=== PATIENT | female | born 1940 | race Caucasian/White ===

== ENCOUNTER 2017-05-19 12:18 | Emergency (ER) | payer MEDICARE, OTHER ==
[2017-05-20] MEDS: SOD CHLORIDE 0.9% 500 ML IV (00:47)
[2017-05-20] MEDS: AMPICILLIN 2 GM/NS (PMX) 100 ML IVPB (00:53)
[2017-05-20 01:26] LABS: ADD MAN DIFF? NO
[2017-05-20 01:32] LABS: BASOPHILS % 0.5 % (0.0-2.0); EOSINOPHILS # 0.2 10^3/ul (0.0-0.5); EOSINOPHILS % 4.1 % (0.0-7.0); HEMATOCRIT 34.4 % (37.0-47.0); LYMPHOCYTES # 1.6 10^3/ul (0.8-2.9); LYMPHOCYTES % 27.9 % (15.0-51.0); MEAN CORPUSCULAR HEMOGLOBIN 25.7 pg (29.0-33.0); MEAN CORPUSCULAR VOLUME 80.4 fl (82.0-101.0); MONOCYTE # 0.6 10^3/ul (0.3-0.9); MONOCYTES % 9.8 % (0.0-11.0); NEUTROPHIL # 3.3 10^3/ul (1.6-7.5); NEUTROPHILS % 57.4 % (39.0-77.0); PLATELET COUNT 394 10^3/UL (140-415); RED BLOOD COUNT 4.28 10^6/ul (4.20-5.40); RED CELL DISTRIBUTION WIDTH 14.6 % (11.5-14.5)
[2017-05-20 01:32] LABS: WHITE BLOOD COUNT 5.8 10^3/ul (4.8-10.8)
[2017-05-20 01:56] LABS: ALANINE AMINOTRANSFERASE 29 IU/L (13-69); ALBUMIN 3.7 g/dl (3.3-4.9); ALBUMIN/GLOBULIN RATIO 0.94; ALKALINE PHOSPHATASE 97 IU/L (42-121); ANION GAP 16 (8-16); ASPARTATE AMINO TRANSFERASE 40 IU/L (15-46); BLOOD UREA NITROGEN 20 mg/dl (7-20); CALCIUM 8.7 mg/dl (8.4-10.2); CARBON DIOXIDE 26 mmol/L (21-31); CHLORIDE 102 mmol/L (97-110); CREATININE 1.26 mg/dl (0.44-1.00); GLUCOSE 150 mg/dl (70-220); POTASSIUM 3.8 mmol/L (3.5-5.1); SODIUM 140 mmol/L (135-144); TOTAL PROTEIN 7.6 g/dl (6.1-8.1)
[2017-05-20 02:07] LABS: TROPONIN-I 0.023 ng/ml (0.00-0.12)
== END 2017-05-20 03:50 | disposition home or self-care (01) ==
LOC: FTE 12:18
DX: T82.49XA Other complication of vascular dialysis catheter, initial encounter (principal); E11.9 Type 2 diabetes mellitus without complications; I70.303 Unspecified atherosclerosis of unspecified type of bypass graft(s) of the extremities, bilateral legs; Y71.2 Prosthetic and other implants, materials and accessory cardiovascular devices associated with adverse incidents; Z87.2 Personal history of diseases of the skin and subcutaneous tissue; Z45.2 Encounter for adjustment and management of vascular access device; Z79.84 Long term (current) use of oral hypoglycemic drugs
CPT/HCPCS: 36415; 71045; 80053; 82962; 84484; 85025; 87040; 93971; 96365; 99285-25

== ENCOUNTER 2017-05-20 10:19 | Emergency (ER) | payer MEDICARE, OTHER ==
[2017-05-20] MEDS: LIDOCAINE 1% (MPF) 5 ML VIAL SC (12:10)
[2017-05-20] MEDS: SOD CHLORIDE 0.9% 100 ML (12:25)
== END 2017-05-20 16:35 | disposition home or self-care (01) ==
LOC: E/R 10:19
DX: Z45.2 Encounter for adjustment and management of vascular access device (principal); E11.9 Type 2 diabetes mellitus without complications; I10 Essential (primary) hypertension; Z79.84 Long term (current) use of oral hypoglycemic drugs
CPT/HCPCS: 36569; 71045; 76937; 99284-25

== ENCOUNTER 2017-05-21 18:14 | Emergency (ER) | payer MEDICARE, OTHER ==
[2017-05-21 21:52] LABS: ADD MAN DIFF? NO
[2017-05-21 21:54] LABS: WHITE BLOOD COUNT 6.9 10^3/ul (4.8-10.8)
[2017-05-21 21:54] LABS: BASOPHILS % 0.1 % (0.0-2.0); EOSINOPHILS # 0.6 10^3/ul (0.0-0.5); EOSINOPHILS % 8.4 % (0.0-7.0); HEMATOCRIT 31.4 % (37.0-47.0); HEMOGLOBIN 10.1 g/dl (12.0-16.0); LYMPHOCYTES # 0.8 10^3/ul (0.8-2.9); MEAN CORPUSCULAR HEMOGLOBIN 26.2 pg (29.0-33.0); MEAN CORPUSCULAR HGB CONC 32.2 g/dl (32.0-37.0); MEAN CORPUSCULAR VOLUME 81.6 fl (82.0-101.0); MEAN PLATELET VOLUME 9.9 fl (7.4-10.4); MONOCYTE # 0.4 10^3/ul (0.3-0.9); MONOCYTES % 5.2 % (0.0-11.0); NEUTROPHIL # 5.1 10^3/ul (1.6-7.5); PLATELET COUNT 325 10^3/UL (140-415); RED BLOOD COUNT 3.85 10^6/ul (4.20-5.40); RED CELL DISTRIBUTION WIDTH 14.5 % (11.5-14.5)
[2017-05-21] MEDS: SODIUM CHLORIDE 0.9% 1L BAG IV* (22:01)
[2017-05-21] MEDS: DIPHENHYDRAMINE 25 MG CAP PO (22:04)
[2017-05-21 22:09] LABS: ALANINE AMINOTRANSFERASE 29 IU/L (13-69); ALBUMIN 3.4 g/dl (3.3-4.9); ALBUMIN/GLOBULIN RATIO 0.91; ALKALINE PHOSPHATASE 102 IU/L (42-121); ANION GAP 13 (8-16); ASPARTATE AMINO TRANSFERASE 33 IU/L (15-46); BILIRUBIN,INDIRECT 0.1 mg/dl (0-1.1); BILIRUBIN,TOTAL 0.1 mg/dl (0.2-1.3); BLOOD UREA NITROGEN 14 mg/dl (7-20); CALCIUM 8.1 mg/dl (8.4-10.2); CARBON DIOXIDE 26 mmol/L (21-31); CHLORIDE 99 mmol/L (97-110); CREATININE 1.32 mg/dl (0.44-1.00); GLUCOSE 140 mg/dl (70-220); INR 1.02; PARTIAL THROMBOPLASTIN TIME 31.2 Sec (25.0-35.0); POTASSIUM 3.8 mmol/L (3.5-5.1); PROTIME 13.5 Sec (11.9-14.9); PT RATIO 1.1; SODIUM 134 mmol/L (135-144); TOTAL PROTEIN 7.1 g/dl (6.1-8.1)
[2017-05-21 22:21] LABS: TROPONIN-I 0.013 ng/ml (0.00-0.12)
== END 2017-05-21 23:49 | disposition home or self-care (01) ==
LOC: E/R 18:14
DX: B34.9 Viral infection, unspecified (principal); B09 Unspecified viral infection characterized by skin and mucous membrane lesions; I10 Essential (primary) hypertension; E11.9 Type 2 diabetes mellitus without complications; R07.9 Chest pain, unspecified; R50.9 Fever, unspecified; Z79.82 Long term (current) use of aspirin; Z79.84 Long term (current) use of oral hypoglycemic drugs; Z79.4 Long term (current) use of insulin
CPT/HCPCS: 36415; 71045; 80053; 83605; 84484; 85025; 85610; 85730; 87040; 93005; 99285-25

== ENCOUNTER 2017-06-13 05:23 | Inpatient (IN) | payer MEDICARE, OTHER ==
[2017-06-13] MEDS: ACETAMINOPHEN 500 MG TAB PO (06:57)
[2017-06-13] MEDS: SODIUM CHLORIDE 0.9% 1L BAG IV* (06:57)
[2017-06-13 07:09] LABS: ABNORMAL IP MESSAGE 1; HEMATOCRIT 35.7 % (37.0-47.0); HEMOGLOBIN 11.5 g/dl (12.0-16.0); MEAN CORPUSCULAR HEMOGLOBIN 26.2 pg (29.0-33.0); MEAN CORPUSCULAR HGB CONC 32.2 g/dl (32.0-37.0); MEAN CORPUSCULAR VOLUME 81.3 fl (82.0-101.0); MEAN PLATELET VOLUME 10.7 fl (7.4-10.4); PLATELET COUNT 248 10^3/UL (140-415); RED BLOOD COUNT 4.39 10^6/ul (4.20-5.40); RED CELL DISTRIBUTION WIDTH 15.7 % (11.5-14.5)
[2017-06-13 07:09] LABS: WHITE BLOOD COUNT 7.9 10^3/ul (4.8-10.8)
[2017-06-13 07:10] LABS: POSITIVE DIFF @See below
[2017-06-13 07:11] LABS: ADD MAN DIFF? YES
[2017-06-13 07:33] LABS: INR 0.98; PROTIME 13.1 Sec (11.9-14.9)
[2017-06-13 07:34] LABS: PARTIAL THROMBOPLASTIN TIME 24.7 Sec (25.0-35.0)
[2017-06-13 07:39] LABS: ALANINE AMINOTRANSFERASE 23 IU/L (13-69); ALBUMIN 3.7 g/dl (3.3-4.9); ALBUMIN/GLOBULIN RATIO 0.94; ALKALINE PHOSPHATASE 90 IU/L (42-121); ANION GAP 15 (8-16); ASPARTATE AMINO TRANSFERASE 28 IU/L (15-46); BILIRUBIN,INDIRECT 0.2 mg/dl (0-1.1); BILIRUBIN,TOTAL 0.2 mg/dl (0.2-1.3); BLOOD UREA NITROGEN 20 mg/dl (7-20); CALCIUM 9.1 mg/dl (8.4-10.2); CARBON DIOXIDE 22 mmol/L (21-31); CHLORIDE 104 mmol/L (97-110); CREATININE 1.31 mg/dl (0.44-1.00); GLUCOSE 198 mg/dl (70-220); POTASSIUM 3.9 mmol/L (3.5-5.1); SODIUM 137 mmol/L (135-144); TOTAL PROTEIN 7.6 g/dl (6.1-8.1)
[2017-06-13 07:55] LABS: TROPONIN-I < 0.012 ng/ml (0.00-0.12)
[2017-06-13] MEDS: CEFEPIME 2GM/50 ML (PMX) 50 ML IVPB (08:05)
[2017-06-13] MEDS: VANCOMYCIN 1 GM (PMX) 250 ML IVPB (08:38)
[2017-06-13 08:53] LABS: ADD UMIC NO; UR ASCORBIC ACID NEGATIVE (NEGATIVE); UR BILIRUBIN (Dip) NEGATIVE (NEGATIVE); UR BLOOD (Dip) NEGATIVE (NEGATIVE); UR CLARITY CLEAR (CLEAR); UR COLOR STRAW (YELLOW); UR GLUCOSE (Dip) 1+ mg/dL (NEGATIVE); UR KETONES (Dip) NEGATIVE (NEGATIVE); UR LEUKOCYTE ESTERASE (Dip) NEGATIVE Leu/ul (NEGATIVE); UR NITRITE (Dip) NEGATIVE (NEGATIVE); UR SPECIFIC GRAVITY (Dip) 1.006 (1.003-1.030); UR TOTAL PROTEIN (Dip) NEGATIVE (NEGATIVE); UR UROBILINOGEN (Dip) NEGATIVE (NEGATIVE)
[2017-06-13] MEDS: SOD CHLORIDE 0.9% 1,000 ML IV (09:00)
[2017-06-13] MEDS ORDERED: VANCOMYCIN IV PER PHARMACY XX (09:00)
[2017-06-13 09:28] LABS: BAND NEUTROPHILS #M 2.7 10^3/ul (0.0-0.6); BAND NEUTROPHILS % (M) 35 % (0-4); EOSINOPHILS % (M) 1 % (0-7); LYMPHOCYTES #M 0.1 10^3/ul (0.8-2.9); LYMPHOCYTES % (M) 2 % (15-51); PLATELET ESTIMATE NORMAL; SEG NEUT #M 5.1 10^3/ul (1.7-7.5); SEGMENTED NEUTROPHILS (M) % 62 % (39-77); SMUDGE%M 24 % (0-0)
[2017-06-13] MEDS: PIPER-TAZO 3.375 GM IV (PMX) 100 ML IVPB ×2 (11:22→18:00)
[2017-06-13] MEDS ORDERED: NACL 0.9% 3 ML SYG IV (11:30)
[2017-06-13] MEDS ORDERED: VANCOMYCIN 1 GM (PMX) 250 ML IVPB (11:30)
[2017-06-13 11:32] LABS: LACTIC ACID 2.2 mmol/L (0.5-2.0)
[2017-06-13] MEDS: CLINDAMYCIN 600 MG/D5W (PMX) 50 ML IVPB ×3 (12:11→18:00)
[2017-06-13] MEDS ORDERED: GLUCAGON 1 MG INJ IM (12:30)
[2017-06-13] MEDS ORDERED: GLUCOSE GEL 15 GRAM TUBE PO ×2 (12:30)
[2017-06-13] MEDS ORDERED: GLUCOSE GEL 15 GRAM TUBE BUCCAL (12:30)
[2017-06-13] MEDS ORDERED: DEXTROSE 50% 50 ML SYRINGE IV ×2 (12:30)
[2017-06-13] MEDS: INSULIN ASPART [NOVOLOG] 3 ML PEN SC ×3 (12:46→21:00)
[2017-06-13] MEDS: INSULIN GLARGINE [LANtus] 3 ML PEN SC (20:00)
[2017-06-13 20:19] LABS: LACTIC ACID 2.2 mmol/L (0.5-2.0)
[2017-06-13] MEDS: SOD CHLORIDE 0.9% 250 ML IV (21:53)
[2017-06-14 01:05] LABS: LACTIC ACID 2.4 mmol/L (0.5-2.0)
[2017-06-14] MEDS: SOD CHLORIDE 0.9% 500 ML IV (01:42)
[2017-06-14] MEDS: ACCU-CHEK XX (01:48)
[2017-06-14 02:28] LABS: LACTIC ACID 2.1 mmol/L (0.5-2.0)
[2017-06-14] MEDS: PIPER-TAZO 3.375 GM IV (PMX) 100 ML IVPB ×2 (02:35→09:29)
[2017-06-14] MEDS: CLINDAMYCIN 600 MG/D5W (PMX) 50 ML IVPB ×3 (06:13→14:19)
[2017-06-14 06:29] LABS: WHITE BLOOD COUNT 12.2 10^3/ul (4.8-10.8)
[2017-06-14 06:29] LABS: ABNORMAL IP MESSAGE 1; HEMATOCRIT 29.4 % (37.0-47.0); HEMOGLOBIN 9.4 g/dl (12.0-16.0); MEAN CORPUSCULAR HEMOGLOBIN 26.2 pg (29.0-33.0); MEAN CORPUSCULAR VOLUME 81.9 fl (82.0-101.0); PLATELET COUNT 176 10^3/UL (140-415); RED BLOOD COUNT 3.59 10^6/ul (4.20-5.40)
[2017-06-14 06:32] LABS: ADD MAN DIFF? YES; POSITIVE DIFF @See below
[2017-06-14 06:57] LABS: LACTIC ACID 1.6 mmol/L (0.5-2.0)
[2017-06-14 07:16] LABS: ALBUMIN/GLOBULIN RATIO 0.78; ANION GAP 13 (8-16)
[2017-06-14 07:46] LABS: ALANINE AMINOTRANSFERASE 25 IU/L (13-69); ALBUMIN 2.5 g/dl (3.3-4.9); ALKALINE PHOSPHATASE 45 IU/L (42-121); ASPARTATE AMINO TRANSFERASE 25 IU/L (15-46); BILIRUBIN,INDIRECT 0.2 mg/dl (0-1.1); BILIRUBIN,TOTAL 0.2 mg/dl (0.2-1.3); BLOOD UREA NITROGEN 24 mg/dl (7-20); CALCIUM 7.8 mg/dl (8.4-10.2); CARBON DIOXIDE 23 mmol/L (21-31); CHLORIDE 106 mmol/L (97-110); CREATININE 1.54 mg/dl (0.44-1.00); GLUCOSE 82 mg/dl (70-220); POTASSIUM 3.6 mmol/L (3.5-5.1); SODIUM 138 mmol/L (135-144); TOTAL PROTEIN 5.7 g/dl (6.1-8.1)
[2017-06-14] MEDS: INSULIN ASPART [NOVOLOG] 3 ML PEN SC ×4 (08:00→21:00)
[2017-06-14] MEDS: ENOXAPARIN 30 MG/0.3 ML SYG SC (08:12)
[2017-06-14 08:19] LABS: ANISOCYTOSIS 1+ (0-0); BAND NEUTROPHILS #M 4.5 10^3/ul (0.0-0.6); BAND NEUTROPHILS % (M) 37 % (0-4); HYPOCHROMASIA 1+ (0-0); LYMPHOCYTES #M 0.9 10^3/ul (0.8-2.9); LYMPHOCYTES % (M) 8 % (15-51); METAMYELOCYTES #M 0.2 10^3/ul (0.0-0.0); METAMYELOCYTES %M 2 % (0-0); MONOCYTE #M 0.3 10^3/ul (0.3-0.9); MONOCYTES % (M) 3 % (0-11); PLATELET ESTIMATE NORMAL; PLATELET MORPHOLOGY COMMENT @See below; POLYCHROMASIA 1+ (0-0); REACTIVE LYMPHOCYTES #M 0.1 10^3/ul (0.0-0.0); REACTIVE LYMPHOCYTES% (M) 1 % (0-0); SEG NEUT #M 6.5 10^3/ul (1.7-7.5); SEGMENTED NEUTROPHILS (M) % 49 % (39-77); SMUDGE%M 5 % (0-0)
[2017-06-14] MEDS: CEFTRIAXONE 2 GM/50 ML (PMX) 50 ML IVPB (17:03)
[2017-06-14] MEDS: metroNIDAZOLE 250 MG TAB PO ×2 (17:03→21:00)
[2017-06-14] MEDS ORDERED: PIPER-TAZO 3.375 GM IV (PMX) 100 ML IVPB (18:00)
[2017-06-14] MEDS: AMPICILLIN/SULB 3 GM/NS (PMX) 100 ML IVPB (18:27)
[2017-06-14] MEDS ORDERED: VANCOMYCIN 1 GM (PMX) 250 ML IVPB ×2 (20:00)
[2017-06-14] MEDS: INSULIN GLARGINE [LANtus] 3 ML PEN SC (20:59)
[2017-06-15] MEDS: ACCU-CHEK XX (02:11)
[2017-06-15] MEDS: metroNIDAZOLE 250 MG TAB PO ×3 (06:28→22:04)
[2017-06-15 07:50] LABS: HEMATOCRIT 28.4 % (37.0-47.0); HEMOGLOBIN 9.1 g/dl (12.0-16.0); MEAN CORPUSCULAR HEMOGLOBIN 26.1 pg (29.0-33.0); MEAN CORPUSCULAR VOLUME 81.4 fl (82.0-101.0); MEAN PLATELET VOLUME 10.6 fl (7.4-10.4); PLATELET COUNT 177 10^3/UL (140-415); RED BLOOD COUNT 3.49 10^6/ul (4.20-5.40); RED CELL DISTRIBUTION WIDTH 16.3 % (11.5-14.5)
[2017-06-15 07:50] LABS: WHITE BLOOD COUNT 14.3 10^3/ul (4.8-10.8)
[2017-06-15 07:52] LABS: ADD MAN DIFF? YES; POSITIVE DIFF @See below
[2017-06-15] MEDS: INSULIN ASPART [NOVOLOG] 3 ML PEN SC ×4 (08:00→20:57)
[2017-06-15 08:11] LABS: BLOOD UREA NITROGEN 21 mg/dl (7-20); CALCIUM 8.1 mg/dl (8.4-10.2); CARBON DIOXIDE 22 mmol/L (21-31); CHLORIDE 103 mmol/L (97-110); CREATININE 1.41 mg/dl (0.44-1.00); GLUCOSE 61 mg/dl (70-220); SODIUM 136 mmol/L (135-144)
[2017-06-15 08:21] LABS: ANION GAP 14 (8-16)
[2017-06-15] MEDS: ENOXAPARIN 30 MG/0.3 ML SYG SC (08:40)
[2017-06-15] MEDS: AMPICILLIN/SULB 3 GM/NS (PMX) 100 ML IVPB ×2 (09:34→20:59)
[2017-06-15 09:37] LABS: BAND NEUTROPHILS % (M) 35 % (0-4); EOSINOPHILS % (M) 3 % (0-7); ERYTHROBLAST% (NRBC) (M) 1 % (0-0); GIANT THROMBO% (M) 1 % (0-0); LYMPHOCYTES #M 1.7 10^3/ul (0.8-2.9); LYMPHOCYTES % (M) 12 % (15-51); MONOCYTE #M 0.2 10^3/ul (0.3-0.9); MONOCYTES % (M) 2 % (0-11); PLATELET ESTIMATE NORMAL; POLYCHROMASIA 1+ (0-0); SEG NEUT #M 7.6 10^3/ul (1.7-7.5); SEGMENTED NEUTROPHILS (M) % 48 % (39-77); SMUDGE%M 4 % (0-0)
[2017-06-15] MEDS: POTASSIUM CHLORIDE (SR) 20 MEQ TAB PO ×2 (12:27→15:22)
[2017-06-15] MEDS: CEFTRIAXONE 2 GM/50 ML (PMX) 50 ML IVPB (15:25)
[2017-06-15] MEDS: INSULIN GLARGINE [LANtus] 3 ML PEN SC (20:59)
[2017-06-16] MEDS: ACCU-CHEK XX (02:52)
[2017-06-16] MEDS: INSULIN ASPART [NOVOLOG] 3 ML PEN SC ×4 (08:00→20:23)
[2017-06-16] MEDS: ENOXAPARIN 30 MG/0.3 ML SYG SC (08:13)
[2017-06-16 08:38] LABS: HEMATOCRIT 29.8 % (37.0-47.0); HEMOGLOBIN 9.7 g/dl (12.0-16.0); MEAN CORPUSCULAR HEMOGLOBIN 26.2 pg (29.0-33.0); MEAN CORPUSCULAR HGB CONC 32.6 g/dl (32.0-37.0); MEAN CORPUSCULAR VOLUME 80.5 fl (82.0-101.0); MEAN PLATELET VOLUME 11.4 fl (7.4-10.4); PLATELET COUNT 211 10^3/UL (140-415); RED CELL DISTRIBUTION WIDTH 16.1 % (11.5-14.5)
[2017-06-16 08:38] LABS: WHITE BLOOD COUNT 11.9 10^3/ul (4.8-10.8)
[2017-06-16 08:49] LABS: ADD MAN DIFF? YES; POSITIVE DIFF @See below
[2017-06-16 08:56] LABS: ANION GAP 11 (8-16); BLOOD UREA NITROGEN 17 mg/dl (7-20); CALCIUM 8.8 mg/dl (8.4-10.2); CARBON DIOXIDE 25 mmol/L (21-31); CHLORIDE 105 mmol/L (97-110); CREATININE 1.11 mg/dl (0.44-1.00); GLUCOSE 103 mg/dl (70-220); MAGNESIUM 1.6 mg/dl (1.7-2.5); PHOSPHORUS 2.3 mg/dl (2.5-4.9); POTASSIUM 3.8 mmol/L (3.5-5.1); SODIUM 137 mmol/L (135-144)
[2017-06-16 11:46] LABS: BAND NEUTROPHILS #M 2.2 10^3/ul (0.0-0.6); BAND NEUTROPHILS % (M) 19 % (0-4); EOSINOPHILS % (M) 3 % (0-7); GIANT THROMBO% (M) 1 % (0-0); LYMPHOCYTES #M 1.3 10^3/ul (0.8-2.9); LYMPHOCYTES % (M) 11 % (15-51); METAMYELOCYTES #M 0.1 10^3/ul (0.0-0.0); METAMYELOCYTES %M 1 % (0-0); MONOCYTE #M 0.5 10^3/ul (0.3-0.9); MONOCYTES % (M) 5 % (0-11); PLATELET ESTIMATE NORMAL; POIKILOCYTOSIS 1+ (0-0); POLYCHROMASIA 1+ (0-0); REACTIVE LYMPHOCYTES #M 0.7 10^3/ul (0.0-0.0); REACTIVE LYMPHOCYTES% (M) 6 % (0-0); SEG NEUT #M 6.8 10^3/ul (1.7-7.5); SEGMENTED NEUTROPHILS (M) % 55 % (39-77); SMUDGE%M 1 % (0-0)
[2017-06-16] MEDS: MAGNESIUM OXIDE 400 MG TAB PO ×2 (14:21→20:23)
[2017-06-16] MEDS: MAGNESIUM SULFATE 2 GM/50 ML 50 ML IVPB (14:22)
[2017-06-16] MEDS: CEFTRIAXONE 2 GM/50 ML (PMX) 50 ML IVPB (16:39)
[2017-06-16] MEDS: INSULIN GLARGINE [LANtus] 3 ML PEN SC (20:26)
[2017-06-17] MEDS: ACCU-CHEK XX (03:00)
[2017-06-17] MEDS: INSULIN ASPART [NOVOLOG] 3 ML PEN SC ×2 (08:00→12:37)
[2017-06-17] MEDS: ASPIRIN (EC) 81 MG TAB PO (09:00)
[2017-06-17] MEDS: ENOXAPARIN 30 MG/0.3 ML SYG SC (09:00)
[2017-06-17] MEDS: MAGNESIUM OXIDE 400 MG TAB PO (09:00)
[2017-06-17 09:11] LABS: ADD MAN DIFF? NO
[2017-06-17 09:43] LABS: BASOPHILS % 0.4 % (0.0-2.0); EOSINOPHILS # 0.5 10^3/ul (0.0-0.5); EOSINOPHILS % 7.5 % (0.0-7.0); HEMATOCRIT 30.8 % (37.0-47.0); HEMOGLOBIN 10.1 g/dl (12.0-16.0); LYMPHOCYTES # 1.6 10^3/ul (0.8-2.9); LYMPHOCYTES % 23.4 % (15.0-51.0); MEAN CORPUSCULAR HEMOGLOBIN 26.4 pg (29.0-33.0); MEAN CORPUSCULAR HGB CONC 32.8 g/dl (32.0-37.0); MEAN CORPUSCULAR VOLUME 80.4 fl (82.0-101.0); MEAN PLATELET VOLUME 10.5 fl (7.4-10.4); MONOCYTE # 0.8 10^3/ul (0.3-0.9); MONOCYTES % 11.1 % (0.0-11.0); NEUTROPHILS % 56.3 % (39.0-77.0); PLATELET COUNT 260 10^3/UL (140-415); RED BLOOD COUNT 3.83 10^6/ul (4.20-5.40); RED CELL DISTRIBUTION WIDTH 15.9 % (11.5-14.5)
[2017-06-17 09:48] LABS: ANION GAP 10 (8-16); BLOOD UREA NITROGEN 14 mg/dl (7-20); CALCIUM 8.9 mg/dl (8.4-10.2); CARBON DIOXIDE 29 mmol/L (21-31); CHLORIDE 101 mmol/L (97-110); CREATININE 1.02 mg/dl (0.44-1.00); GLUCOSE 91 mg/dl (70-220); POTASSIUM 3.9 mmol/L (3.5-5.1); SODIUM 136 mmol/L (135-144)
[2017-06-17] MEDS: CEFTRIAXONE 2 GM/50 ML (PMX) 50 ML IVPB (16:52)
== END 2017-06-17 19:19 | disposition home or self-care (01) | DRG 872 ==
LOC: E/R 05:23 → MS4 08:54
DX: A41.9 Sepsis, unspecified organism (principal); E11.21 Type 2 diabetes mellitus with diabetic nephropathy; N18.3 Chronic kidney disease, stage 3 (moderate); L03.311 Cellulitis of abdominal wall; E11.22 Type 2 diabetes mellitus with diabetic chronic kidney disease; I70.1 Atherosclerosis of renal artery; I12.9 Hypertensive chronic kidney disease with stage 1 through stage 4 chronic kidney disease, or unspecified chronic kidney disease; I89.0 Lymphedema, not elsewhere classified; E78.5 Hyperlipidemia, unspecified; Z79.4 Long term (current) use of insulin; Z85.41 Personal history of malignant neoplasm of cervix uteri; R65.20 Severe sepsis without septic shock; B95.1 Streptococcus, group B, as the cause of diseases classified elsewhere
CPT/HCPCS: 36415; 71045; 73700; 74176; 78806; 80048; 80053; 81003; 82962; 83605; 83735; 84100; 84484; 85025; 85610; 85730; 87040; 87045; 87075; 87081; 87086; 87400; 93005; 93306; 93970; 96365; 96366; 96367; 96372; 97110; 97163; 97530; 99291-25

== ENCOUNTER 2018-03-31 15:47 | Inpatient (IN) | payer MEDICARE, OTHER ==
[2018-03-31 18:15] LABS: ADD MAN DIFF? NO
[2018-03-31 18:19] LABS: WHITE BLOOD COUNT 9.7 10^3/ul (4.8-10.8)
[2018-03-31 18:19] LABS: BASOPHILS % 0.1 % (0.0-2.0); EOSINOPHILS % 0.1 % (0.0-7.0); HEMATOCRIT 39.7 % (37.0-47.0); HEMOGLOBIN 12.7 g/dl (12.0-16.0); LYMPHOCYTES # 1.1 10^3/ul (0.8-2.9); LYMPHOCYTES % 10.9 % (15.0-51.0); MEAN CORPUSCULAR HEMOGLOBIN 26.4 pg (29.0-33.0); MEAN CORPUSCULAR VOLUME 82.5 fl (82.0-101.0); MEAN PLATELET VOLUME 10.5 fl (7.4-10.4); MONOCYTE # 0.7 10^3/ul (0.3-0.9); MONOCYTES % 7.1 % (0.0-11.0); NEUTROPHIL # 7.9 10^3/ul (1.6-7.5); NEUTROPHILS % 81.5 % (39.0-77.0); PLATELET COUNT 229 10^3/UL (140-415); RED BLOOD COUNT 4.81 10^6/ul (4.20-5.40); RED CELL DISTRIBUTION WIDTH 13.9 % (11.5-14.5)
[2018-03-31] MEDS: IBUPROFEN 600 MG TAB PO (18:21)
[2018-03-31] MEDS: ACETAMINOPHEN 325 MG TAB PO (18:21)
[2018-03-31] MEDS: CEFEPIME 2GM/50 ML (PMX) 50 ML IVPB (18:35)
[2018-03-31] MEDS: SODIUM CHLORIDE 0.9% 1L BAG IV* (18:37)
[2018-03-31 18:39] LABS: INR 0.94; PROTIME 12.7 Sec (11.9-14.9)
[2018-03-31 18:43] LABS: ALANINE AMINOTRANSFERASE 21 IU/L (13-69); ALBUMIN 4.3 g/dl (3.3-4.9); ALBUMIN/GLOBULIN RATIO 1.16; ALKALINE PHOSPHATASE 111 IU/L (42-121); AMYLASE 75 U/L (11-123); ANION GAP 10 (5-13); ASPARTATE AMINO TRANSFERASE 42 IU/L (15-46); BILIRUBIN,INDIRECT 0.7 mg/dl (0-1.1); BILIRUBIN,TOTAL 0.7 mg/dl (0.2-1.3); BLOOD UREA NITROGEN 19 mg/dl (7-20); CALCIUM 9.2 mg/dl (8.4-10.2); CARBON DIOXIDE 26 mmol/L (21-31); CHLORIDE 101 mmol/L (97-110); CREATININE 1.29 mg/dl (0.44-1.00); GLUCOSE 195 mg/dl (70-220); LIPASE 79 U/L (23-300); SODIUM 137 mmol/L (135-144)
[2018-03-31] MEDS: morphine 2 MG INJ IV (18:54)
[2018-03-31] MEDS: ONDANSETRON 4 MG INJ IV (18:54)
[2018-03-31 18:55] LABS: TROPONIN-I 0.023 ng/ml (0.000-0.120)
[2018-03-31 19:01] LABS: ADD UMIC YES; UR ASCORBIC ACID NEGATIVE (NEGATIVE); UR BACTERIA FEW /HPF (NONE SEEN); UR BILIRUBIN (Dip) NEGATIVE (NEGATIVE); UR BLOOD (Dip) 1+ mg/dL (NEGATIVE); UR CLARITY SLIGHTLY CLOUDY (CLEAR); UR COLOR YELLOW (YELLOW); UR GLUCOSE (Dip) 3+ mg/dL (NEGATIVE); UR KETONES (Dip) NEGATIVE (NEGATIVE); UR LEUKOCYTE ESTERASE (Dip) NEGATIVE Leu/ul (NEGATIVE); UR MUCUS FEW /HPF (NONE SEEN); UR NITRITE (Dip) POSITIVE (NEGATIVE); UR RBC 4 /HPF (0-5); UR SPECIFIC GRAVITY (Dip) 1.013 (1.003-1.030); UR TOTAL PROTEIN (Dip) 2+ mg/dl (NEGATIVE); UR UROBILINOGEN (Dip) NEGATIVE (NEGATIVE); UR WBC 32 /HPF (0-5)
[2018-03-31 19:39] LABS: B-TYPE NATRIURETIC PEPTIDE 1490 PG/ML (0-450)
[2018-03-31] MEDS: VANCOMYCIN 1 GM (PMX) 250 ML IVPB (19:44)
[2018-03-31] MEDS ORDERED: NACL 0.9% 3 ML SYG IV (20:30)
[2018-03-31] MEDS ORDERED: BISACODYL (EC) 5 MG TAB PO (20:30)
[2018-03-31] MEDS ORDERED: ACETAMINOPHEN 325 MG TAB PO (20:30)
[2018-03-31] MEDS ORDERED: ONDANSETRON 4 MG INJ IV (20:30)
[2018-03-31] MEDS ORDERED: DOCUSATE SODIUM 100 MG CAP PO (20:30)
[2018-03-31] MEDS: INSULIN ASPART [NOVOLOG] 3 ML PEN SC (23:37)
[2018-03-31] MEDS: HEPARIN 5,000 UNIT/1 ML VIAL SC (23:37)
[2018-03-31] MEDS: ACCU-CHEK XX (23:37)
[2018-03-31 23:42] LABS: LACTIC ACID 1.2 mmol/L (0.5-2.0)
[2018-03-31] MEDS ORDERED: DEXTROSE 50% 50 ML SYRINGE IV ×2 (23:45)
[2018-03-31] MEDS ORDERED: GLUCOSE GEL 15 GRAM TUBE BUCCAL (23:45)
[2018-03-31] MEDS ORDERED: GLUCAGON 1 MG INJ IM (23:45)
[2018-03-31] MEDS ORDERED: GLUCOSE GEL 15 GRAM TUBE PO ×2 (23:45)
[2018-04-01] MEDS ORDERED: HEPARIN 5,000 UNIT/0.5 ML VIAL ×3 (05:15→20:13)
[2018-04-01] MEDS: HEPARIN 5,000 UNIT/1 ML VIAL SC ×3 (05:35→20:17)
[2018-04-01 06:12] LABS: ADD MAN DIFF? NO
[2018-04-01 06:19] LABS: BASOPHILS % 0.3 % (0.0-2.0); EOSINOPHILS # 0.2 10^3/ul (0.0-0.5); HEMATOCRIT 33.4 % (37.0-47.0); HEMOGLOBIN 10.7 g/dl (12.0-16.0); LYMPHOCYTES # 0.9 10^3/ul (0.8-2.9); LYMPHOCYTES % 12.6 % (15.0-51.0); MEAN CORPUSCULAR HEMOGLOBIN 26.4 pg (29.0-33.0); MEAN CORPUSCULAR VOLUME 82.5 fl (82.0-101.0); MEAN PLATELET VOLUME 10.5 fl (7.4-10.4); MONOCYTE # 0.7 10^3/ul (0.3-0.9); MONOCYTES % 9.6 % (0.0-11.0); NEUTROPHIL # 5.2 10^3/ul (1.6-7.5); NEUTROPHILS % 74.2 % (39.0-77.0); PLATELET COUNT 172 10^3/UL (140-415); RED BLOOD COUNT 4.05 10^6/ul (4.20-5.40); RED CELL DISTRIBUTION WIDTH 14.3 % (11.5-14.5)
[2018-04-01 06:46] LABS: ALANINE AMINOTRANSFERASE 25 IU/L (13-69); ALBUMIN 2.8 g/dl (3.3-4.9); ALBUMIN/GLOBULIN RATIO 0.93; ALKALINE PHOSPHATASE 79 IU/L (42-121); ANION GAP 5 (5-13); ASPARTATE AMINO TRANSFERASE 35 IU/L (15-46); BILIRUBIN,INDIRECT 0.7 mg/dl (0-1.1); BILIRUBIN,TOTAL 0.7 mg/dl (0.2-1.3); BLOOD UREA NITROGEN 22 mg/dl (7-20); CALCIUM 8.1 mg/dl (8.4-10.2); CARBON DIOXIDE 24 mmol/L (21-31); CHLORIDE 110 mmol/L (97-110); CHOL/HDL RATIO 3.1 RATIO; CHOLESTEROL 148 mg/dl (100-200); CREATININE 1.14 mg/dl (0.44-1.00); GLUCOSE 144 mg/dl (70-220); HDL CHOLESTEROL 47 mg/dl (33-92); LDL CHOLESTEROL,CALCULATED 89 mg/dl; MAGNESIUM 1.8 mg/dl (1.7-2.5); POTASSIUM 3.9 mmol/L (3.5-5.1); SODIUM 139 mmol/L (135-144); TOTAL PROTEIN 5.8 g/dl (6.1-8.1); TRIGLYCERIDES 60 mg/dl (0-149)
[2018-04-01] MEDS: INSULIN ASPART [NOVOLOG] 3 ML PEN SC ×4 (07:55→20:09)
[2018-04-01 08:59] LABS: HEMOGLOBIN A1C 8.2 % (0-5.9)
[2018-04-01] MEDS ORDERED: INSULIN DEGLUDEC 10 UNIT SQ (09:00)
[2018-04-01] MEDS: FUROSEMIDE 40 MG INJ IV (10:47)
[2018-04-01] MEDS: CEFTRIAXONE 1 GM/50 ML (PMX) 50 ML IVPB (12:08)
[2018-04-01] MEDS: ACETAMINOPHEN 325 MG TAB PO (15:27)
[2018-04-01] MEDS ORDERED: VANCOMYCIN IV PER PHARMACY XX (15:30)
[2018-04-01] MEDS: [UNRECOGNIZED DRUG - OTHER] XX ×2 (16:30→21:36)
[2018-04-01] MEDS: CIPROFLOXACIN 500 MG TAB PO (17:25)
[2018-04-01] MEDS: BALSAM PERU/CASTOR OIL 60 GM TUBE TOP (20:16)
[2018-04-01] MEDS: VANCOMYCIN 750 MG in SOD CHLORIDE 0.9% 150 ML IVPB (20:16)
[2018-04-02] MEDS: ACCU-CHEK XX (02:00)
[2018-04-02] MEDS ORDERED: HEPARIN 5,000 UNIT/0.5 ML VIAL ×3 (05:00→20:33)
[2018-04-02] MEDS: CIPROFLOXACIN 500 MG TAB PO ×2 (05:08→17:20)
[2018-04-02] MEDS: HEPARIN 5,000 UNIT/1 ML VIAL SC ×3 (05:12→21:48)
[2018-04-02 06:12] LABS: ADD MAN DIFF? NO
[2018-04-02 06:25] LABS: WHITE BLOOD COUNT 6.7 10^3/ul (4.8-10.8)
[2018-04-02 06:25] LABS: BASOPHILS % 0.3 % (0.0-2.0); EOSINOPHILS % 0.4 % (0.0-7.0); HEMATOCRIT 34.8 % (37.0-47.0); HEMOGLOBIN 11.2 g/dl (12.0-16.0); LYMPHOCYTES # 1.2 10^3/ul (0.8-2.9); LYMPHOCYTES % 17.1 % (15.0-51.0); MEAN CORPUSCULAR HEMOGLOBIN 26.4 pg (29.0-33.0); MEAN CORPUSCULAR HGB CONC 32.2 g/dl (32.0-37.0); MEAN CORPUSCULAR VOLUME 81.9 fl (82.0-101.0); MEAN PLATELET VOLUME 10.9 fl (7.4-10.4); MONOCYTE # 0.8 10^3/ul (0.3-0.9); MONOCYTES % 11.6 % (0.0-11.0); NEUTROPHIL # 4.7 10^3/ul (1.6-7.5); NEUTROPHILS % 70.3 % (39.0-77.0); PLATELET COUNT 196 10^3/UL (140-415); RED BLOOD COUNT 4.25 10^6/ul (4.20-5.40); RED CELL DISTRIBUTION WIDTH 13.8 % (11.5-14.5)
[2018-04-02 06:53] LABS: ANION GAP 10 (5-13); BLOOD UREA NITROGEN 17 mg/dl (7-20); CALCIUM 8.4 mg/dl (8.4-10.2); CARBON DIOXIDE 28 mmol/L (21-31); CHLORIDE 98 mmol/L (97-110); CREATININE 1.23 mg/dl (0.44-1.00); GLUCOSE 136 mg/dl (70-220); POTASSIUM 3.7 mmol/L (3.5-5.1); SODIUM 136 mmol/L (135-144)
[2018-04-02] MEDS: INSULIN ASPART [NOVOLOG] 3 ML PEN SC ×5 (07:55→21:49)
[2018-04-02] MEDS: ACETAMINOPHEN 325 MG TAB PO ×2 (08:09→18:16)
[2018-04-02] MEDS: BALSAM PERU/CASTOR OIL 60 GM TUBE TOP ×2 (08:09→20:29)
[2018-04-02] MEDS: INSULIN GLARGINE [LANTus] (100 UNITS/ML) SYG SC (11:52)
[2018-04-02] MEDS: hydrALAzine 20 MG INJ IV (16:07)
[2018-04-02] MEDS: VANCOMYCIN 750 MG in SOD CHLORIDE 0.9% 150 ML IVPB (20:28)
[2018-04-02] MEDS: ONDANSETRON 4 MG TAB PO (20:36)
[2018-04-03] MEDS ORDERED: HEPARIN 5,000 UNIT/0.5 ML VIAL ×3 (05:26→20:46)
[2018-04-03] MEDS: CIPROFLOXACIN 500 MG TAB PO ×2 (05:28→17:07)
[2018-04-03 06:10] LABS: ADD MAN DIFF? NO
[2018-04-03 06:20] LABS: WHITE BLOOD COUNT 5.8 10^3/ul (4.8-10.8)
[2018-04-03 06:20] LABS: BASOPHILS % 0.3 % (0.0-2.0); EOSINOPHILS # 0.1 10^3/ul (0.0-0.5); EOSINOPHILS % 1.6 % (0.0-7.0); HEMATOCRIT 33.7 % (37.0-47.0); LYMPHOCYTES # 1.1 10^3/ul (0.8-2.9); LYMPHOCYTES % 18.3 % (15.0-51.0); MEAN CORPUSCULAR HEMOGLOBIN 26.7 pg (29.0-33.0); MEAN CORPUSCULAR HGB CONC 32.6 g/dl (32.0-37.0); MEAN CORPUSCULAR VOLUME 81.8 fl (82.0-101.0); MEAN PLATELET VOLUME 10.8 fl (7.4-10.4); MONOCYTE # 0.7 10^3/ul (0.3-0.9); MONOCYTES % 11.5 % (0.0-11.0); NEUTROPHIL # 3.9 10^3/ul (1.6-7.5); PLATELET COUNT 220 10^3/UL (140-415); RED BLOOD COUNT 4.12 10^6/ul (4.20-5.40); RED CELL DISTRIBUTION WIDTH 13.7 % (11.5-14.5)
[2018-04-03 06:26] LABS: ALBUMIN 3.3 g/dl (3.3-4.9); ANION GAP 9 (5-13); BLOOD UREA NITROGEN 17 mg/dl (7-20); CALCIUM 8.5 mg/dl (8.4-10.2); CARBON DIOXIDE 25 mmol/L (21-31); CHLORIDE 102 mmol/L (97-110); CREATININE 1.18 mg/dl (0.44-1.00); GLUCOSE 104 mg/dl (70-220); PHOSPHORUS 3.7 mg/dl (2.5-4.9); POTASSIUM 3.5 mmol/L (3.5-5.1); SODIUM 136 mmol/L (135-144)
[2018-04-03] MEDS: HEPARIN 5,000 UNIT/1 ML VIAL SC ×3 (06:31→21:58)
[2018-04-03 06:40] LABS: MAGNESIUM 1.7 mg/dl (1.7-2.5)
[2018-04-03] MEDS: INSULIN ASPART [NOVOLOG] 3 ML PEN SC ×4 (07:55→21:58)
[2018-04-03] MEDS: BALSAM PERU/CASTOR OIL 60 GM TUBE TOP ×2 (08:35→21:02)
[2018-04-03] MEDS: INSULIN GLARGINE [LANTus] (100 UNITS/ML) SYG SC (09:11)
[2018-04-03] MEDS: AMLODIPINE 5 MG TAB PO (10:07)
[2018-04-03 19:52] LABS: VANCOMYCIN,TROUGH 9.7 ug/ml (10.0-20.0)
[2018-04-03] MEDS: VANCOMYCIN 1 GM 250 ML IVPB (22:36)
[2018-04-04 06:00] LABS: ADD MAN DIFF? NO; BASOPHILS % 0.4 % (0.0-2.0); EOSINOPHILS # 0.1 10^3/ul (0.0-0.5); EOSINOPHILS % 1.5 % (0.0-7.0); HEMATOCRIT 33.6 % (37.0-47.0); HEMOGLOBIN 10.7 g/dl (12.0-16.0); LYMPHOCYTES # 1.1 10^3/ul (0.8-2.9); LYMPHOCYTES % 20.5 % (15.0-51.0); MEAN CORPUSCULAR HEMOGLOBIN 26.2 pg (29.0-33.0); MEAN CORPUSCULAR HGB CONC 31.8 g/dl (32.0-37.0); MEAN CORPUSCULAR VOLUME 82.2 fl (82.0-101.0); MEAN PLATELET VOLUME 10.2 fl (7.4-10.4); MONOCYTE # 0.6 10^3/ul (0.3-0.9); NEUTROPHIL # 3.5 10^3/ul (1.6-7.5); NEUTROPHILS % 65.2 % (39.0-77.0); PLATELET COUNT 239 10^3/UL (140-415); RED BLOOD COUNT 4.09 10^6/ul (4.20-5.40); RED CELL DISTRIBUTION WIDTH 13.8 % (11.5-14.5)
[2018-04-04 06:00] LABS: WHITE BLOOD COUNT 5.3 10^3/ul (4.8-10.8)
[2018-04-04] MEDS ORDERED: HEPARIN 5,000 UNIT/0.5 ML VIAL ×3 (06:46→20:01)
[2018-04-04 06:56] LABS: ALBUMIN 3.3 g/dl (3.3-4.9); ANION GAP 9 (5-13); BLOOD UREA NITROGEN 17 mg/dl (7-20); CALCIUM 8.7 mg/dl (8.4-10.2); CARBON DIOXIDE 27 mmol/L (21-31); CHLORIDE 101 mmol/L (97-110); CREATININE 1.13 mg/dl (0.44-1.00); GLUCOSE 126 mg/dl (70-220); MAGNESIUM 1.9 mg/dl (1.7-2.5); PHOSPHORUS 3.5 mg/dl (2.5-4.9); SODIUM 137 mmol/L (135-144)
[2018-04-04] MEDS: CIPROFLOXACIN 500 MG TAB PO ×2 (06:56→17:03)
[2018-04-04] MEDS: HEPARIN 5,000 UNIT/1 ML VIAL SC ×3 (07:01→21:15)
[2018-04-04] MEDS: AMLODIPINE 5 MG TAB PO (08:16)
[2018-04-04] MEDS: INSULIN ASPART [NOVOLOG] 3 ML PEN SC ×4 (08:22→20:53)
[2018-04-04] MEDS: INSULIN GLARGINE [LANTus] (100 UNITS/ML) SYG SC (08:23)
[2018-04-04] MEDS: BALSAM PERU/CASTOR OIL 60 GM TUBE TOP ×2 (08:23→20:43)
[2018-04-04] MEDS: ACETAMINOPHEN 325 MG TAB PO ×2 (14:42→20:43)
[2018-04-04] MEDS: VANCOMYCIN 1 GM 250 ML IVPB (20:42)
[2018-04-05] MEDS ORDERED: HEPARIN 5,000 UNIT/0.5 ML VIAL ×3 (04:23→20:54)
[2018-04-05 05:38] LABS: ADD MAN DIFF? NO
[2018-04-05 05:45] LABS: BASOPHILS % 0.3 % (0.0-2.0); EOSINOPHILS # 0.2 10^3/ul (0.0-0.5); EOSINOPHILS % 3.6 % (0.0-7.0); HEMATOCRIT 34.4 % (37.0-47.0); LYMPHOCYTES # 1.3 10^3/ul (0.8-2.9); MEAN CORPUSCULAR HEMOGLOBIN 26.3 pg (29.0-33.0); MEAN CORPUSCULAR VOLUME 82.3 fl (82.0-101.0); MEAN PLATELET VOLUME 10.3 fl (7.4-10.4); MONOCYTE # 0.7 10^3/ul (0.3-0.9); MONOCYTES % 12.4 % (0.0-11.0); NEUTROPHIL # 3.6 10^3/ul (1.6-7.5); NEUTROPHILS % 61.2 % (39.0-77.0); PLATELET COUNT 255 10^3/UL (140-415); RED BLOOD COUNT 4.18 10^6/ul (4.20-5.40); RED CELL DISTRIBUTION WIDTH 13.7 % (11.5-14.5)
[2018-04-05 05:45] LABS: WHITE BLOOD COUNT 5.8 10^3/ul (4.8-10.8)
[2018-04-05] MEDS: ACETAMINOPHEN 325 MG TAB PO ×2 (05:58→20:58)
[2018-04-05] MEDS: CIPROFLOXACIN 500 MG TAB PO ×2 (05:58→17:45)
[2018-04-05] MEDS: HEPARIN 5,000 UNIT/1 ML VIAL SC ×3 (06:20→22:17)
[2018-04-05 06:41] LABS: ALBUMIN 3.3 g/dl (3.3-4.9); ANION GAP 8 (5-13); BLOOD UREA NITROGEN 19 mg/dl (7-20); CALCIUM 8.8 mg/dl (8.4-10.2); CARBON DIOXIDE 26 mmol/L (21-31); CHLORIDE 102 mmol/L (97-110); CREATININE 1.12 mg/dl (0.44-1.00); GLUCOSE 123 mg/dl (70-220); PHOSPHORUS 3.8 mg/dl (2.5-4.9); POTASSIUM 4.3 mmol/L (3.5-5.1); SODIUM 136 mmol/L (135-144)
[2018-04-05] MEDS: INSULIN ASPART [NOVOLOG] 3 ML PEN SC ×4 (07:55→21:00)
[2018-04-05] MEDS: INSULIN GLARGINE [LANTus] (100 UNITS/ML) SYG SC (08:07)
[2018-04-05] MEDS: AMLODIPINE 5 MG TAB PO (08:53)
[2018-04-05] MEDS: BALSAM PERU/CASTOR OIL 60 GM TUBE TOP ×2 (08:53→20:58)
[2018-04-05] MEDS: VANCOMYCIN 1 GM 250 ML IVPB (20:58)
[2018-04-05] MEDS: MUPIROCIN 2% 22 GM OINT TOP (20:58)
[2018-04-06 05:00] LABS: ADD MAN DIFF? NO
[2018-04-06 05:03] LABS: WHITE BLOOD COUNT 6.6 10^3/ul (4.8-10.8)
[2018-04-06 05:03] LABS: BASOPHILS % 0.5 % (0.0-2.0); EOSINOPHILS # 0.2 10^3/ul (0.0-0.5); EOSINOPHILS % 3.6 % (0.0-7.0); HEMATOCRIT 33.1 % (37.0-47.0); HEMOGLOBIN 10.5 g/dl (12.0-16.0); LYMPHOCYTES # 1.5 10^3/ul (0.8-2.9); LYMPHOCYTES % 23.3 % (15.0-51.0); MEAN CORPUSCULAR HEMOGLOBIN 26.1 pg (29.0-33.0); MEAN CORPUSCULAR HGB CONC 31.7 g/dl (32.0-37.0); MEAN CORPUSCULAR VOLUME 82.3 fl (82.0-101.0); MEAN PLATELET VOLUME 10.1 fl (7.4-10.4); MONOCYTE # 0.7 10^3/ul (0.3-0.9); MONOCYTES % 10.9 % (0.0-11.0); NEUTROPHILS % 61.1 % (39.0-77.0); PLATELET COUNT 281 10^3/UL (140-415); RED BLOOD COUNT 4.02 10^6/ul (4.20-5.40); RED CELL DISTRIBUTION WIDTH 13.7 % (11.5-14.5)
[2018-04-06 05:35] LABS: ANION GAP 8 (5-13); BLOOD UREA NITROGEN 18 mg/dl (7-20); CALCIUM 8.5 mg/dl (8.4-10.2); CARBON DIOXIDE 26 mmol/L (21-31); CHLORIDE 101 mmol/L (97-110); CREATININE 0.94 mg/dl (0.44-1.00); GLUCOSE 114 mg/dl (70-220); MAGNESIUM 1.9 mg/dl (1.7-2.5); POTASSIUM 4.4 mmol/L (3.5-5.1); SODIUM 135 mmol/L (135-144)
[2018-04-06] MEDS: CIPROFLOXACIN 500 MG TAB PO ×2 (05:44→17:45)
[2018-04-06] MEDS ORDERED: HEPARIN 5,000 UNIT/0.5 ML VIAL ×2 (08:12→20:56)
[2018-04-06] MEDS: INSULIN ASPART [NOVOLOG] 3 ML PEN SC ×4 (08:45→21:00)
[2018-04-06] MEDS: AMLODIPINE 5 MG TAB PO (09:04)
[2018-04-06] MEDS: MUPIROCIN 2% 22 GM OINT TOP ×2 (09:57→21:03)
[2018-04-06] MEDS: BALSAM PERU/CASTOR OIL 60 GM TUBE TOP ×2 (09:57→21:03)
[2018-04-06] MEDS: INSULIN GLARGINE [LANTus] (100 UNITS/ML) SYG SC (10:02)
[2018-04-06] MEDS: HEPARIN 5,000 UNIT/1 ML VIAL SC ×2 (10:03→21:07)
[2018-04-06] MEDS: VANCOMYCIN 1 GM 250 ML IVPB (21:04)
[2018-04-06] MEDS: ACETAMINOPHEN 325 MG TAB PO (21:10)
[2018-04-07 05:07] LABS: ADD MAN DIFF? NO
[2018-04-07 05:14] LABS: BASOPHILS % 0.4 % (0.0-2.0); EOSINOPHILS # 0.2 10^3/ul (0.0-0.5); EOSINOPHILS % 3.4 % (0.0-7.0); HEMATOCRIT 31.8 % (37.0-47.0); HEMOGLOBIN 10.4 g/dl (12.0-16.0); LYMPHOCYTES # 1.4 10^3/ul (0.8-2.9); LYMPHOCYTES % 19.4 % (15.0-51.0); MEAN CORPUSCULAR HEMOGLOBIN 26.7 pg (29.0-33.0); MEAN CORPUSCULAR HGB CONC 32.7 g/dl (32.0-37.0); MEAN CORPUSCULAR VOLUME 81.5 fl (82.0-101.0); MONOCYTE # 0.8 10^3/ul (0.3-0.9); MONOCYTES % 10.9 % (0.0-11.0); NEUTROPHIL # 4.5 10^3/ul (1.6-7.5); NEUTROPHILS % 65.2 % (39.0-77.0); PLATELET COUNT 324 10^3/UL (140-415); RED CELL DISTRIBUTION WIDTH 13.7 % (11.5-14.5)
[2018-04-07 05:46] LABS: ANION GAP 7 (5-13); BLOOD UREA NITROGEN 17 mg/dl (7-20); CALCIUM 8.9 mg/dl (8.4-10.2); CHLORIDE 101 mmol/L (97-110); GLUCOSE 110 mg/dl (70-220); MAGNESIUM 1.9 mg/dl (1.7-2.5); PHOSPHORUS 4.4 mg/dl (2.5-4.9); POTASSIUM 3.9 mmol/L (3.5-5.1)
[2018-04-07] MEDS: CIPROFLOXACIN 500 MG TAB PO (05:50)
[2018-04-07 06:16] LABS: CARBON DIOXIDE 23 mmol/L (21-31); SODIUM 135 mmol/L (135-144)
[2018-04-07] MEDS: INSULIN ASPART [NOVOLOG] 3 ML PEN SC ×4 (07:50→20:33)
[2018-04-07] MEDS ORDERED: HEPARIN 5,000 UNIT/0.5 ML VIAL ×2 (08:14→20:14)
[2018-04-07] MEDS: AMLODIPINE 5 MG TAB PO (08:38)
[2018-04-07] MEDS: MUPIROCIN 2% 22 GM OINT TOP ×2 (08:39→20:37)
[2018-04-07] MEDS: INSULIN GLARGINE [LANTus] (100 UNITS/ML) SYG SC (08:40)
[2018-04-07] MEDS: HEPARIN 5,000 UNIT/1 ML VIAL SC ×2 (08:41→20:35)
[2018-04-07] MEDS: BALSAM PERU/CASTOR OIL 60 GM TUBE TOP ×2 (08:45→20:37)
[2018-04-07 16:24] LABS: SYN FLD PMN % 96.8 % (0.0-25.0); SYN FLD WBC 99768 /cmm (0-150)
[2018-04-07 17:16] LABS: SYN FLD COLOR LIGHT YELLOW; SYN FLD MN % 3.2 &
[2018-04-07 17:16] LABS: SYN FLD SOURCE HIP FLUID
[2018-04-07 17:17] LABS: SYN FLD CLARITY CLOUDY; SYN FLD CRYSTALS NO CRYSTALS SEEN (None seen)
[2018-04-07 17:55] LABS: FLUID GLUCOSE 94 mg/dl
[2018-04-07] MEDS: VANCOMYCIN 1 GM 250 ML IVPB (20:34)
[2018-04-08 05:17] LABS: ADD MAN DIFF? NO
[2018-04-08 05:22] LABS: WHITE BLOOD COUNT 7.2 10^3/ul (4.8-10.8)
[2018-04-08 05:22] LABS: BASOPHILS % 0.4 % (0.0-2.0); EOSINOPHILS # 0.2 10^3/ul (0.0-0.5); EOSINOPHILS % 3.4 % (0.0-7.0); HEMATOCRIT 31.2 % (37.0-47.0); HEMOGLOBIN 9.8 g/dl (12.0-16.0); LYMPHOCYTES # 1.2 10^3/ul (0.8-2.9); LYMPHOCYTES % 17.1 % (15.0-51.0); MEAN CORPUSCULAR HEMOGLOBIN 25.7 pg (29.0-33.0); MEAN CORPUSCULAR HGB CONC 31.4 g/dl (32.0-37.0); MEAN CORPUSCULAR VOLUME 81.9 fl (82.0-101.0); MEAN PLATELET VOLUME 9.7 fl (7.4-10.4); MONOCYTE # 0.8 10^3/ul (0.3-0.9); MONOCYTES % 10.5 % (0.0-11.0); NEUTROPHIL # 4.9 10^3/ul (1.6-7.5); NEUTROPHILS % 67.9 % (39.0-77.0); PLATELET COUNT 389 10^3/UL (140-415); RED BLOOD COUNT 3.81 10^6/ul (4.20-5.40)
[2018-04-08 05:40] LABS: ANION GAP 10 (5-13)
[2018-04-08 05:44] LABS: BLOOD UREA NITROGEN 18 mg/dl (7-20); CALCIUM 8.7 mg/dl (8.4-10.2); CARBON DIOXIDE 27 mmol/L (21-31); CHLORIDE 100 mmol/L (97-110); CREATININE 1.04 mg/dl (0.44-1.00); GLUCOSE 129 mg/dl (70-220); PHOSPHORUS 4.3 mg/dl (2.5-4.9); POTASSIUM 4.3 mmol/L (3.5-5.1); SODIUM 137 mmol/L (135-144)
[2018-04-08] MEDS ORDERED: HEPARIN 5,000 UNIT/0.5 ML VIAL ×2 (08:27→20:05)
[2018-04-08] MEDS: INSULIN GLARGINE [LANTus] (100 UNITS/ML) SYG SC (08:52)
[2018-04-08] MEDS: HEPARIN 5,000 UNIT/1 ML VIAL SC ×2 (08:53→20:52)
[2018-04-08] MEDS: AMLODIPINE 5 MG TAB PO (08:53)
[2018-04-08] MEDS: MUPIROCIN 2% 22 GM OINT TOP ×2 (08:54→21:14)
[2018-04-08] MEDS: BALSAM PERU/CASTOR OIL 60 GM TUBE TOP ×2 (08:54→21:14)
[2018-04-08] MEDS: INSULIN ASPART [NOVOLOG] 3 ML PEN SC ×4 (08:54→21:00)
[2018-04-08] MEDS: VANCOMYCIN 1 GM 250 ML IVPB (20:50)
[2018-04-09] MEDS: ACETAMINOPHEN 325 MG TAB PO (02:23)
[2018-04-09 05:25] LABS: ADD MAN DIFF? NO
[2018-04-09 05:36] LABS: BASOPHILS % 0.3 % (0.0-2.0); EOSINOPHILS # 0.2 10^3/ul (0.0-0.5); EOSINOPHILS % 2.4 % (0.0-7.0); HEMATOCRIT 30.2 % (37.0-47.0); HEMOGLOBIN 9.8 g/dl (12.0-16.0); LYMPHOCYTES # 1.3 10^3/ul (0.8-2.9); LYMPHOCYTES % 16.9 % (15.0-51.0); MEAN CORPUSCULAR HEMOGLOBIN 26.6 pg (29.0-33.0); MEAN CORPUSCULAR HGB CONC 32.5 g/dl (32.0-37.0); MEAN CORPUSCULAR VOLUME 81.8 fl (82.0-101.0); MEAN PLATELET VOLUME 9.7 fl (7.4-10.4); MONOCYTE # 0.8 10^3/ul (0.3-0.9); MONOCYTES % 9.6 % (0.0-11.0); NEUTROPHIL # 5.5 10^3/ul (1.6-7.5); NEUTROPHILS % 70.2 % (39.0-77.0); PLATELET COUNT 432 10^3/UL (140-415); RED BLOOD COUNT 3.69 10^6/ul (4.20-5.40); RED CELL DISTRIBUTION WIDTH 13.7 % (11.5-14.5)
[2018-04-09 05:36] LABS: WHITE BLOOD COUNT 7.8 10^3/ul (4.8-10.8)
[2018-04-09 06:18] LABS: ANION GAP 8 (5-13); BLOOD UREA NITROGEN 20 mg/dl (7-20); CALCIUM 8.8 mg/dl (8.4-10.2); CARBON DIOXIDE 28 mmol/L (21-31); CHLORIDE 100 mmol/L (97-110); CREATININE 1.03 mg/dl (0.44-1.00); GLUCOSE 110 mg/dl (70-220); PHOSPHORUS 4.2 mg/dl (2.5-4.9); POTASSIUM 4.5 mmol/L (3.5-5.1); SODIUM 136 mmol/L (135-144)
[2018-04-09 06:24] LABS: C-REACTIVE PROTEIN 18.1 mg/dl (0.0-0.9)
[2018-04-09] MEDS: INSULIN ASPART [NOVOLOG] 3 ML PEN SC ×4 (07:50→20:48)
[2018-04-09] MEDS ORDERED: HEPARIN 5,000 UNIT/0.5 ML VIAL ×2 (08:18→20:25)
[2018-04-09] MEDS: RIFAMPIN 300 MG CAP PO (08:30)
[2018-04-09] MEDS: AMLODIPINE 5 MG TAB PO (08:30)
[2018-04-09] MEDS: HEPARIN 5,000 UNIT/1 ML VIAL SC ×2 (08:31→20:49)
[2018-04-09] MEDS: INSULIN GLARGINE [LANTus] (100 UNITS/ML) SYG SC (08:32)
[2018-04-09 08:46] LABS: ERYTHROCYTE SEDIMENTATION RATE 117 mm/Hr (0-30)
[2018-04-09] MEDS: MUPIROCIN 2% 22 GM OINT TOP ×2 (09:00→20:50)
[2018-04-09] MEDS: BALSAM PERU/CASTOR OIL 60 GM TUBE TOP ×2 (09:00→20:50)
[2018-04-09] MEDS: LIDOCAINE 1% (MPF) 5 ML VIAL (19:50)
[2018-04-09] MEDS: IOHEXOL 300MG/ML 30 ML BTL (19:50)
[2018-04-09 20:28] LABS: VANCOMYCIN,TROUGH 13.9 ug/ml (10.0-20.0)
[2018-04-09] MEDS: VANCOMYCIN 1 GM 250 ML IVPB (20:51)
[2018-04-10 05:42] LABS: WHITE BLOOD COUNT 7.2 10^3/ul (4.8-10.8)
[2018-04-10 05:42] LABS: ADD MAN DIFF? NO; BASOPHILS % 0.3 % (0.0-2.0); EOSINOPHILS # 0.2 10^3/ul (0.0-0.5); EOSINOPHILS % 2.8 % (0.0-7.0); LYMPHOCYTES # 1.4 10^3/ul (0.8-2.9); LYMPHOCYTES % 18.7 % (15.0-51.0); MEAN CORPUSCULAR HEMOGLOBIN 26.4 pg (29.0-33.0); MEAN CORPUSCULAR HGB CONC 32.3 g/dl (32.0-37.0); MEAN CORPUSCULAR VOLUME 81.8 fl (82.0-101.0); MEAN PLATELET VOLUME 9.6 fl (7.4-10.4); MONOCYTE # 0.8 10^3/ul (0.3-0.9); MONOCYTES % 10.8 % (0.0-11.0); NEUTROPHIL # 4.8 10^3/ul (1.6-7.5); NEUTROPHILS % 66.8 % (39.0-77.0); PLATELET COUNT 504 10^3/UL (140-415); RED BLOOD COUNT 3.79 10^6/ul (4.20-5.40); RED CELL DISTRIBUTION WIDTH 13.6 % (11.5-14.5)
[2018-04-10 06:52] LABS: ANION GAP 12 (5-13); BLOOD UREA NITROGEN 20 mg/dl (7-20); CALCIUM 8.4 mg/dl (8.4-10.2); CARBON DIOXIDE 22 mmol/L (21-31); CHLORIDE 101 mmol/L (97-110); GLUCOSE 99 mg/dl (70-220); MAGNESIUM 1.9 mg/dl (1.7-2.5); PHOSPHORUS 4.2 mg/dl (2.5-4.9); POTASSIUM 4.4 mmol/L (3.5-5.1); SODIUM 135 mmol/L (135-144)
[2018-04-10] MEDS: INSULIN ASPART [NOVOLOG] 3 ML PEN SC ×4 (07:50→21:00)
[2018-04-10] MEDS ORDERED: HEPARIN 5,000 UNIT/0.5 ML VIAL ×2 (08:39→20:05)
[2018-04-10] MEDS: INSULIN GLARGINE [LANTus] (100 UNITS/ML) SYG SC (08:45)
[2018-04-10] MEDS: HEPARIN 5,000 UNIT/1 ML VIAL SC ×2 (08:46→21:01)
[2018-04-10] MEDS: RIFAMPIN 300 MG CAP PO (09:25)
[2018-04-10] MEDS: MUPIROCIN 2% 22 GM OINT TOP ×2 (09:26→21:02)
[2018-04-10] MEDS: BALSAM PERU/CASTOR OIL 60 GM TUBE TOP ×2 (09:26→21:02)
[2018-04-10] MEDS: AMLODIPINE 5 MG TAB PO (09:26)
[2018-04-10] MEDS: LIDOCAINE 1% (MPF) 5 ML VIAL SC (12:30)
[2018-04-10] MEDS: VANCOMYCIN 1 GM 250 ML IVPB (20:56)
[2018-04-11 05:10] LABS: ADD MAN DIFF? NO
[2018-04-11 05:22] LABS: BASOPHILS % 0.3 % (0.0-2.0); EOSINOPHILS # 0.2 10^3/ul (0.0-0.5); EOSINOPHILS % 2.4 % (0.0-7.0); HEMATOCRIT 31.5 % (37.0-47.0); HEMOGLOBIN 10.1 g/dl (12.0-16.0); LYMPHOCYTES % 13.8 % (15.0-51.0); MEAN CORPUSCULAR HEMOGLOBIN 26.4 pg (29.0-33.0); MEAN CORPUSCULAR HGB CONC 32.1 g/dl (32.0-37.0); MEAN CORPUSCULAR VOLUME 82.2 fl (82.0-101.0); MEAN PLATELET VOLUME 9.5 fl (7.4-10.4); MONOCYTE # 0.8 10^3/ul (0.3-0.9); MONOCYTES % 10.1 % (0.0-11.0); NEUTROPHIL # 5.4 10^3/ul (1.6-7.5); NEUTROPHILS % 72.3 % (39.0-77.0); PLATELET COUNT 561 10^3/UL (140-415); RED BLOOD COUNT 3.83 10^6/ul (4.20-5.40); RED CELL DISTRIBUTION WIDTH 13.7 % (11.5-14.5)
[2018-04-11 05:22] LABS: WHITE BLOOD COUNT 7.4 10^3/ul (4.8-10.8)
[2018-04-11 05:54] LABS: ANION GAP 9 (5-13); BLOOD UREA NITROGEN 19 mg/dl (7-20); CALCIUM 8.9 mg/dl (8.4-10.2); CARBON DIOXIDE 26 mmol/L (21-31); CHLORIDE 98 mmol/L (97-110); CREATININE 0.99 mg/dl (0.44-1.00); GLUCOSE 106 mg/dl (70-220); PHOSPHORUS 4.4 mg/dl (2.5-4.9); POTASSIUM 4.3 mmol/L (3.5-5.1); SODIUM 133 mmol/L (135-144)
[2018-04-11] MEDS: INSULIN ASPART [NOVOLOG] 3 ML PEN SC ×4 (07:50→20:25)
[2018-04-11] MEDS ORDERED: HEPARIN 5,000 UNIT/0.5 ML VIAL ×2 (08:45→20:03)
[2018-04-11] MEDS: RIFAMPIN 300 MG CAP PO (08:50)
[2018-04-11] MEDS: BALSAM PERU/CASTOR OIL 60 GM TUBE TOP ×2 (08:51→20:14)
[2018-04-11] MEDS: MUPIROCIN 2% 22 GM OINT TOP ×2 (08:51→20:14)
[2018-04-11] MEDS: AMLODIPINE 5 MG TAB PO (08:51)
[2018-04-11] MEDS: HEPARIN 5,000 UNIT/1 ML VIAL SC ×2 (08:52→20:17)
[2018-04-11] MEDS: INSULIN GLARGINE [LANTus] (100 UNITS/ML) SYG SC (08:53)
[2018-04-11] MEDS: VANCOMYCIN 1 GM 250 ML IVPB (20:13)
[2018-04-12 05:33] LABS: ADD MAN DIFF? NO
[2018-04-12 05:57] LABS: BASOPHILS % 0.4 % (0.0-2.0); EOSINOPHILS # 0.2 10^3/ul (0.0-0.5); EOSINOPHILS % 2.8 % (0.0-7.0); HEMATOCRIT 28.6 % (37.0-47.0); HEMOGLOBIN 9.4 g/dl (12.0-16.0); LYMPHOCYTES # 1.3 10^3/ul (0.8-2.9); LYMPHOCYTES % 17.9 % (15.0-51.0); MEAN CORPUSCULAR HEMOGLOBIN 26.9 pg (29.0-33.0); MEAN CORPUSCULAR HGB CONC 32.9 g/dl (32.0-37.0); MEAN CORPUSCULAR VOLUME 81.7 fl (82.0-101.0); MEAN PLATELET VOLUME 9.9 fl (7.4-10.4); MONOCYTE # 0.7 10^3/ul (0.3-0.9); MONOCYTES % 9.3 % (0.0-11.0); NEUTROPHIL # 4.8 10^3/ul (1.6-7.5); NEUTROPHILS % 68.7 % (39.0-77.0); PLATELET COUNT 557 10^3/UL (140-415); RED CELL DISTRIBUTION WIDTH 13.7 % (11.5-14.5)
[2018-04-12 06:19] LABS: ANION GAP 9 (5-13); BLOOD UREA NITROGEN 24 mg/dl (7-20); CALCIUM 8.5 mg/dl (8.4-10.2); CARBON DIOXIDE 25 mmol/L (21-31); CHLORIDE 101 mmol/L (97-110); CREATININE 1.23 mg/dl (0.44-1.00); GLUCOSE 108 mg/dl (70-220); MAGNESIUM 2.1 mg/dl (1.7-2.5); PHOSPHORUS 5.1 mg/dl (2.5-4.9); POTASSIUM 4.2 mmol/L (3.5-5.1); SODIUM 135 mmol/L (135-144)
[2018-04-12] MEDS: INSULIN ASPART [NOVOLOG] 3 ML PEN SC ×3 (07:50→17:55)
[2018-04-12] MEDS ORDERED: HEPARIN 5,000 UNIT/0.5 ML VIAL (08:45)
[2018-04-12] MEDS: MUPIROCIN 2% 22 GM OINT TOP (09:00)
[2018-04-12] MEDS: BALSAM PERU/CASTOR OIL 60 GM TUBE TOP (09:00)
[2018-04-12] MEDS: AMLODIPINE 5 MG TAB PO (09:00)
[2018-04-12] MEDS: RIFAMPIN 300 MG CAP PO (09:00)
[2018-04-12] MEDS: HEPARIN 5,000 UNIT/1 ML VIAL SC (09:01)
[2018-04-12] MEDS: INSULIN GLARGINE [LANTus] (100 UNITS/ML) SYG SC (09:01)
[2018-04-12] MEDS: ACETAMINOPHEN 325 MG TAB PO (12:13)
== END 2018-04-12 18:10 | DRG 872 ==
LOC: MS1 04-05 23:10 → E/R 15:47 → MS1 04-05 23:17 → TEL 20:19
PROC: C713DZZ Planar Nuclear Medicine Imaging of Blood using Indium 111 (In-111) (ICD-10-PCS; principal; 2018-04-06)
PROC: 02HV33Z Insertion of Infusion Device into Superior Vena Cava, Percutaneous Approach (ICD-10-PCS; 2018-04-11)
PROC: B548ZZA Ultrasonography of Superior Vena Cava, Guidance (ICD-10-PCS; 2018-04-11)
DX: A41.51 Sepsis due to Escherichia coli [E. coli] (principal); N39.0 Urinary tract infection, site not specified; L03.116 Cellulitis of left lower limb; N17.9 Acute kidney failure, unspecified; M00.9 Pyogenic arthritis, unspecified; E11.22 Type 2 diabetes mellitus with diabetic chronic kidney disease; N18.3 Chronic kidney disease, stage 3 (moderate); Z85.41 Personal history of malignant neoplasm of cervix uteri; Z79.4 Long term (current) use of insulin; E66.9 Obesity, unspecified; Z68.31 Body mass index [BMI] 31.0-31.9, adult; I89.0 Lymphedema, not elsewhere classified
CPT/HCPCS: 36569; 71045; 72192; 73700; 76937; 77002; 78806; 80048; 80053; 80061; 80069; 80202; 81001; 82150; 82945; 82962; 83036; 83605; 83690; 83735; 83880; 84100; 84443; 84484; 85025; 85610; 85651; 85730; 86140; 87040; 87070; 87081; 87086; 88104; 88305; 89060; 93005; 93306; 93970; 96374; 96375; 97116; 97162; 97167; 97530; 97535; 99285-25